=== PATIENT | male | born 1960 | race Caucasian/White ===

== ENCOUNTER 2016-08-15 12:56 | Outpatient (CLI) ==
--- NOTE | 2016-08-15 14:11 | DI ---
EXAM: Chest two view, frontal and lateral views. HISTORY: Cough. COMPARISON: 10/10/2009. FINDINGS: The heart size is normal. There is no pulmonary vascular congestion. The lungs are per r. No pleural effusion or pneumothorax is seen. No acute osseous abnormality identified. Since prior study, there has been no significant interval change. IMPRESSION: No acute cardiopulmonary process.
== END 2016-08-15 12:57 | disposition home or self-care (01) ==
LOC: RAD 12:56
PROVIDERS: ATTEND Internal Medicine
DX: R05 Cough (principal)

== ENCOUNTER 2017-01-26 09:14 | Outpatient (CLI) ==
--- NOTE | 2017-01-26 09:47 | CT ---
EXAM: CT chest without contrast HISTORY: Right-sided pulmonary nodule COMPARISON: Chest x-ray 08/15/2016, 09/1969 and 06/08/2009 TECHNIQUE: Serial axial images of the chest were obtained from the lung apices to the upper abdomen without contrast. These were viewed in multiple planes. FINDINGS: The thyroid is normal. The visualized vessels are unremarkable without aneurysm or steno sis. The heart is normal in size without pericardial effusion. There are no pathologically enlarge d mediastinal or hilar lymph nodes. There are calcified mediastinal and right hilar lymph nodes. There is no pneumothorax or pleural effusion. There is a large centrally calcified nodule in the ri ght lower lobe measuring 1.1 x 1.2 cm with a smaller calcified granuloma measuring 0.4 cm adjacent t o the fissure in the right lower lobe. There is no acute consolidation, soft tissue nodule or mass i dentified. The airways are patent. There is no abnormal ground-glass. Soft tissues in the upper abdomen demonstrate no acute abnormality. The osseous structures demonstr ate multilevel degenerative disease of the spine. IMPRESSION: 1. No suspicious pulmonary nodule. 2. Central calcified lymph nodes and right lower lobe calcified granulomas consistent with old gran ulomatous disease.
== END 2017-01-26 09:15 | disposition home or self-care (01) ==
LOC: RAD 09:14
PROVIDERS: ATTEND Internal Medicine
DX: R91.1 Solitary pulmonary nodule (principal)

== ENCOUNTER 2017-08-20 15:34 | Outpatient (CLI) ==
[2017-05-30 06:58] VITALS: BMI 28.1
== END 2017-08-20 15:35 | disposition home or self-care (01) ==
LOC: CAR 15:34
PROVIDERS: ATTEND Internal Medicine
DX: G47.30 Sleep apnea, unspecified (principal)
CPT/HCPCS: 95811

== ENCOUNTER 2018-01-12 09:14 | Day surgery (SDC) ==
[2017-05-30 06:58] VITALS: BMI 28.1
[2018-01-12] MEDS ORDERED: LIDOCAINE 1% 20 ML MDV ID STA (10:33)
[2018-01-12] MEDS ORDERED: DIPRIVAN 20 ML VIAL IVP ONE (11:16)
[2018-01-12] MEDS ORDERED: LIDOCAINE HCL 2% LUER-JET ONE (11:16)
[2018-01-12] MEDS ORDERED: VERSED ONE (11:16)
[2018-01-12 12:57] VITALS: BP 148/73; TEMP 97
--- NOTE | 2018-01-13 10:58 | OP ---
INDICATIONS FOR PROCEDURE: 57-year-old gentleman presents for endoscopy and colonoscopy. He last had a colonoscopy over 5 years ago showing hyperplastic polyps. His brother had colon polyps in his 50's. This classifies him for a screening colon exam with a family history of colon polyps. He also presents for endoscopy. He has a chronic cough. He does have a history of reflux disease. He is on b.i.d. PPI therapy. He states his cough has improved since starting on a higher dose of Asmanex. MEDICATIONS: SEE ANESTHESIA NOTES. PROCEDURE: 1. ENDOSCOPY, ESOPHAGEAL BIOPSY, GASTRIC BIOPSY, CONGOLESE DILATATION. 2. COLONOSCOPY, SNARE POLYPECTOMY. REPORT: The risks, benefits, alternatives and limitations were discussed in detail with the patient. Informed consent was obtained. After adequate sedation was achieved, the video endoscope was introduced in the posterior pharynx and esophagus under direct vision and I easily advanced down to the second portion of the duodenum. I then slowly withdrew the scope. The duodenal mucosa appeared unremarkable as did the duodenal bulb. The antrum and body were relatively unremarkable. In the proximal body and fundic area there was multiple sessile and semi sessile polyps. These were consistent with hyperplastic polyps or fundic polyps. I biospied several of them for histologic review. There was a small hiatal hernia. I withdrew the scope back into the hernia pouch. There was about a 2 cm hiatal hernia. In the pouch, in the cardia , there was a little thickening mucosa. I could not tell if this was granulation tissue or something else. It was about 1 cm distal to the GE junction. I biopsied it for histological review multiple times. The GEJ was also irregular in appearance. It was variable. I biopsied the GEJ several times for histological review. At the lower esophageal sphincter as well there was a stricture that encompassed about two-thirds of the lumen caused mild luminal narrowing. The remaining esophagus appeared unremarkable. I advanced the scope back down the gastric lumen, placed a guidewire. I withdrew the scope. Over the guidewire, I easily advanced the 54 Bengali [place] Dilator. The patient tolerated this procedure well with stable vital signs and pulse oximetry throughout. The patient's bed was turned. A digital rectal exam revealed good tone, no masses. The colonoscope was introduced into the rectum and was advanced under direct visual guidance and advanced easily to the cecum. The cecum was identified by the appendiceal orifice and IC valve. I then slowly withdrew the scope in a circumferential manner examining the mucosa quite carefully. I looked on the proximal and distal side of folds and flexures as best as possible. I was able to retroflex the scope in the right colon and left colon to increase visualization. In the distal transverse colon I removed a small 5 mm polyp that was sessile. It was retrieved. The remaining colon appeared unremarkable including on retroflex view of the anal canal. The prep was good. The withdrawal time was 6 minutes and 0 seconds excluding the time for polypectomy. The patient tolerated the procedure well with stable vital signs and pulse oximetry throughout. IMPRESSION: 1. 2 CM HIATAL HERNIA. 2. IRREGULAR VARIABLE GE JUNCTION BIOPSIED. 3. SLIGHTLY PROMINENT MUCOSA IN THE HIATAL HERNIA POUCH, QUESTION GRANULATION TISSUE, ET CETERA, BIOPSIED. 4. 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 5. MULTIPLE BENIGN APPEARING FUNDIC TYPE POLYPS. 6. SMALL COLONIC POLYP REMOVED. 7. BASED ON THE FINDINGS OF THIS EXAM I CANNOT DETERMINE IF THIS COUGH IS OR IS NOT RELATED TO GASTROESOPHAGEAL REFLUX DISEASE. RECOMMENDATIONS: 1. Strict esophageal reflux precautions and I have gone over these with him. I especially advise weight loss. 2. Await pathology results from the esophageal biopsy, cardia biopsy and gastric polyp biopsy results. If this is all unremarkable tissue without any precancerous or atypical findings, then followup as needed. 3. Await colon polyp pathology results. If that too is benign as expected, I recommend surveillance colonoscopy examination again in 5 years. 4. I will see him back in the office as needed. ADDENDUM: I did see a small AVM in the proximal ascending colon. CC: DR. ZAY KHAN
== END 2018-01-12 12:41 | disposition home or self-care (01) ==
LOC: SURG 09:14
PROVIDERS: ATTEND Internal Medicine Gastroenterology
DX: C16.0 Malignant neoplasm of cardia (principal); K63.5 Polyp of colon; K31.7 Polyp of stomach and duodenum; Z83.71 Family history of colonic polyps; Z87.19 Personal history of other diseases of the digestive system; R05 Cough; K21.9 Gastro-esophageal reflux disease without esophagitis; K44.9 Diaphragmatic hernia without obstruction or gangrene; K22.2 Esophageal obstruction

== ENCOUNTER 2018-01-21 08:48 | Outpatient (CLI) ==
[2017-05-30 06:58] VITALS: BMI 28.1
--- NOTE | 2018-01-21 12:21 | CT ---
EXAM: CT abdomen pelvis with contrast HISTORY: Adenocarcinoma, gastroesophageal junction COMPARISON: None TECHNIQUE: Pelvis performed with intravenous contrast. Coronal and sagittal reformatted images obta ined. FINDINGS: Please refer to report CT chest regarding findings in the lower chest. No free air. No a cute abnormalities of the bones. No suspicious lytic or blastic lesions identified. Liver appears n ormal. Gallbladder appears normal. Pancreas appears normal. Spleen with granulomatous calcificatio n, otherwise unremarkable. Adrenals unremarkable. Sub centimeter hypodensity left kidney, too small to characterize. No hydronephrosis. Aorta normal in caliber. Bladder unremarkable. Prostate mild ly enlarged. Small fat-containing right inguinal hernia. No lymphadenopathy or ascites. Mild thick ening gastroesophageal junction region. No dilated loops small bowel. Appendix appears normal. Por tions of the colon decompressed and poorly evaluated. Small fat-containing periumbilical hernia. IMPRESSION: 1. No evidence for metastatic disease in the abdomen or pelvis. 2. Mild thickening gastroesophageal junction region. Recommend correlation with endoscopy results. 3. Enlarged prostate.
--- NOTE | 2018-01-21 12:24 | CT ---
Exam: CT chest with intravenous contrast. Comparison: 01/26/2017. Reason for exam: Right lung nodules. FINDINGS: Similar appearing partially calcified 13 mm nodule in the right lower lobe not significant ly changed from previous exam with small adjacent micronodules. No pneumothorax, pleural effusion, o r focal consolidation. No suspicious appearing mediastinal lymph node enlargement. The heart is not enlarged. No suspicious appearing osteoblastic or osteolytic lesions. Impression: Similar appearing partially calcified and noncalcified nodules in the right hemithorax not significan tly changed when compared to imaging performed on 01/26/2017. If clinical concern exists, 1-year fol low-up may be performed to document stability
== END 2018-01-21 08:49 | disposition home or self-care (01) ==
LOC: RAD 08:48
PROVIDERS: ATTEND Internal Medicine
DX: R91.8 Other nonspecific abnormal finding of lung field (principal); C16.0 Malignant neoplasm of cardia

== ENCOUNTER 2018-07-31 15:19 | Emergency (ER) ==
[2018-07-31 15:28] VITALS: BP 139/81; TEMP 97.8; BMI 21.2
[2018-07-31] MEDS ORDERED: LACTATED RINGERS 1,000 ML IV STA ×2 (15:48→17:49)
[2018-07-31] MEDS ORDERED: PHENERGAN 25 MG/ML VIAL 25 MG in SODIUM CHLORIDE 50 ML IV STA (15:58)
[2018-07-31] MEDS ORDERED: ZOFRAN 4 MG/2 ML IVP STA (15:58)
[2018-07-31] MEDS ORDERED: PHENERGAN 25 MG/ML VIAL ONE (16:27)
--- NOTE | 2018-07-31 17:10 | ED.PDOC ---
General ED Provider: Dr. ELENA WILLS Chief Complaint: Nausea/Vomiting Stated Complaint: Patient comes to the ER with nausea and vomiting. Had chemotherapy yesterday Time Seen by Physician: 15:30 Mode of Arrival: Walk-In Information Source: Patient Exam Limitations: No limitations Primary Care Provider: SYED COLLAZO Nursing and Triage Documentation Reviewed and Agree: Yes Does patient meet sepsis criteria?: No System Inflammatory Response Syndrome: Not Applicable Sepsis Protocol: For patient's 13 years and over: Temp is 96.8 and below OR 101 and greater Pulse >90 BPM Resp >20/minute Acutely Altered Mental Status Are patient's symptoms suggestive of a new infection, such as: -Pneumonia -Skin, Soft Tissue -Endocarditis -UTI -Bone, Joint Infection -Implantable Device -Acute Abdominal Infection -Wound Infection -Meningitis -Blood Stream Catheter Infection -Unknown GI Complaint Exam - Vomiting/Diarrhea Complaint/Exam Character of Vomiting: Reports: Non-bilious Aggravating: Reports: Food Alleviating: Reports: None Associated Signs and Symptoms: Reports: Light-headedness, Cramping Related History: Reports: Similar episode (with chemo therapy ) Last Oral Intake: early today Non-GI Risk Factors: Reports: Vomiting due to neuro (due to chemotherapy ) Related Surgical History: Denies: Cholecystectomy, Appendectomy, Colectomy, Gastric Bypass (but esophagial cancer resection. ) Differential Diagnoses: Viral Gastroenteritis, Other (post chemotherapy Nausea. ) Review of Systems - Review Of Systems Constitutional: Reports: No symptoms Eyes: Reports: No symptoms Ears, Nose, Mouth, Throat: Reports: No symptoms Respiratory: Reports: No symptoms Cardiac: Reports: No symptoms GI: Reports: Nausea, Poor appetite, Vomiting : Reports: No symptoms Musculoskeletal: Reports: No symptoms Skin: Reports: No symptoms Neurological: Reports: No symptoms Endocrine: Reports: No symptoms Hematologic/Lymphatic: Reports: No symptoms All Other Systems: Reviewed and Negative Past Medical History - Past Medical History Previously Healthy: Yes Endocrine: Reports: None Cardiovascular: Reports: None Respiratory: Reports: None Hematological: Reports: None Gastrointestinal: Reports: GERD Genitourinary: Reports: None Neuro/Psych: Reports: None Musculoskeletal: Reports: Arthritis 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 ) - Surgical History General Surgical History: Reports: Other (Esophagial resection ) - Family History Family History: Reports: None - Social History Smoking Status: Former smoker Hx Substance Use: No Alcohol Screening: None - Immunizations Tetanus Shot up to Date: No Physical Exam - Physical Exam Appearance: Ill-appearing Ill-appearing: Moderate Pain Distress: Mild Eyes: REJI, EOMI, Conjunctiva clear Neck: Supple Respiratory: Airway patent, Breath sounds clear, Breath sounds equal, Respirations nonlabored Cardiovascular: RRR, Pulses normal, No rub, No murmur GI/: Soft, Nontender, No masses, Bowel sounds normal, No Organomegaly Musculoskeletal: Normal strength, ROM intact, No edema, No calf tenderness Skin: Warm, Dry Neurological: Sensation intact, Motor intact, Alert, Oriented Psychiatric: Anxious Re-Evaluation - Re-Evaluation Time of Re-Evaluation: 19:24 Status: Improved Appearance: Other (resting comfortably) Critical Care Note - Critical Care Note Total Time (mins): 0 Course - Course Hematology/Chemistry: 07/31/18 17:18 07/31/18 17:18 Orders, Labs, Meds: Lab Review 07/31/18 07/31/18 17:18 17:18 WBC 6.25 RBC 4.41 L Hgb 12.3 L Hct 37.4 L MCV 84.8 MCH 27.9 MCHC 32.9 RDW Coeff of Bobby 15.6 H Plt Count 177 Immature Gran % (Auto) 0.3 Neut % (Auto) 73.1 Lymph % (Auto) 18.6 [place] % (Auto) 7.2 Eos % (Auto) 0.5 Baso % (Auto) 0.3 Immature Gran # (Auto) 0.0 Neut # (Auto) 4.6 Lymph # (Auto) 1.2 [place] # (Auto) 0.5 Eos # (Auto) 0.0 Baso # (Auto) 0.0 Sodium 135.3 Potassium 4.39 Chloride 102.8 Carbon Dioxide 28.9 Anion Gap 7.99 BUN 10.8 Creatinine 0.85 Estimated GFR (MDRD) 92.00 BUN/Creatinine Ratio 12.70 Glucose 116.4 H Calcium 8.86 Total Bilirubin 1.27 AST 29.8 ALT 13.6 Alkaline Phosphatase 64.6 Total Protein 6.54 Albumin 3.59 Globulin 2.95 Albumin/Globulin Ratio 1.21 Orders Category Date Time Status ED IV/MEDIPORT/POWERPORT .ONCE EMERGENCY 07/31/18 15:48 Active CBC W/ AUTO DIFF Stat LAB 07/31/18 17:18 Completed COMPREHENSIVE METABOLIC PANEL Stat LAB 07/31/18 17:18 Completed 0.9 % Sodium Chloride [Saline Flush] MEDS 07/31/18 15:48 Ordered 1 syr IVF PRN PRN Haloperidol Lactate [Haldol] MEDS 07/31/18 17:47 Discontinued 1 mg IVP ONCE STA Ondansetron HCl/Pf [Zofran 4 mg/2 ml] MEDS 07/31/18 15:58 Discontinued 8 mg IVP ONCE STA Pantoprazole Sodium [Protonix IV] MEDS 07/31/18 18:17 Discontinued 40 mg IVP ONCE STA Promethazine HCl [Phenergan 25 mg/ml Vial] MEDS 07/31/18 16:27 Discontinued 25 mg .ROUTE .STK-MED ONE Promethazine HCl [Phenergan 25 mg/ml Vial] 25 mg MEDS 07/31/18 15:58 Discontinued 0.9 % Sodium Chloride [Sodium Chloride] 50 ml IV ONCE Ringers Lactated Solution [Lactated Ringers] 1,000 ml MEDS 07/31/18 15:48 Discontinued IV BOLUS Ringers Lactated Solution [Lactated Ringers] 1,000 ml MEDS 07/31/18 17:49 Discontinued IV BOLUS Medications Generic Name Dose Route Start Last Admin Trade Name Freq PRN Reason Stop Dose Admin Sodium Chloride 1 syr 07/31/18 15:48 Saline Flush IVF PRN PRN To flush IV Discontinued Medications Generic Name Dose Route Start Last Admin Trade Name Freq PRN Reason Stop Dose Admin Haloperidol Lactate 1 mg 07/31/18 17:47 07/31/18 17:58 Haldol IVP 07/31/18 17:48 5 mg ONCE STA Administration Lactated Ringer's 1,000 mls @ 1,000 mls/hr 07/31/18 15:48 07/31/18 16:38 Lactated Ringers IV 07/31/18 16:47 1,000 mls/hr BOLUS STA Administration Promethazine HCl 25 mg/ Sodium 51 mls @ 75 mls/hr 07/31/18 15:58 07/31/18 16: 37 Chloride IV 07/31/18 16:38 75 mls/hr ONCE STA Administration Lactated Ringer's 1,000 mls @ 1,000 mls/hr 07/31/18 17:49 07/31/18 17:57 Lactated Ringers IV 07/31/18 18:48 1,000 mls/hr BOLUS STA Administration Ondansetron HCl 8 mg 07/31/18 15:58 07/31/18 16:38 Zofran 4 Mg/2 Ml IVP 07/31/18 15:59 8 mg ONCE STA Administration Pantoprazole Sodium 40 mg 07/31/18 18:17 07/31/18 18:52 Protonix Iv IVP 07/31/18 18:18 40 mg ONCE STA Administration Vital Signs: Temp Pulse Resp BP Pulse Ox 07/31/18 15:21 97.8 F 80 16 139/81 100 Departure - Departure Time of Disposition: 19:24 Disposition: HOME SELF-CARE Discharge Problem: Nausea, Vomiting Instructions: Acute Nausea and Vomiting (ED) Condition: Fair Pt referred to PMD for follow-up: Yes IPMP verified?: No Additional Instructions: Push fluids Take Medications as prescribed for nausea Follow up with PCPin 3 days Prescriptions: Prochlorperazine Maleate [Compazine] 10 mg PO QID PRN #30 tablet PRN Reason: Nausea / Vomiting Promethazine HCl [Phenergan Tab] 25 mg PO Q6H PRN #15 tablet PRN Reason: Nausea / Vomiting Allergies/Adverse Reactions: Allergies No Known Allergies Allergy (Unverified 05/30/17 06:57) Home Medications: Ambulatory Orders Pantoprazole Sodium 40 mg PO DAILY 05/30/17 Ondansetron [Zofran Odt] 4 mg SL PRN PRN 07/31/18 Prochlorperazine Maleate [Compazine] 10 mg PO QID PRN #30 tablet 07/31/18 Promethazine HCl [Phenergan Tab] 25 mg PO Q6H PRN #15 tablet 07/31/18
[2018-07-31] MEDS ORDERED: HALDOL IVP STA (17:47)
[2018-07-31] MEDS ORDERED: PROTONIX IV IVP STA (18:17)
[2018-07-31] MEDS ORDERED: ED AFTER HOURS SUPPLY MED SENT HOME PO ONE (19:53)
[2018-07-31] MEDS ORDERED: COMPAZINE ONE (19:58)
== END 2018-07-31 20:00 | disposition home or self-care (01) ==
LOC: ED 15:19
DX: R11.2 Nausea with vomiting, unspecified (principal); T45.1X5A Adverse effect of antineoplastic and immunosuppressive drugs, initial encounter; C15.9 Malignant neoplasm of esophagus, unspecified
CPT/HCPCS: 36415; 80053; 85025; 96361; 96365; 96372; 99284

== ENCOUNTER 2018-08-27 07:50 | Outpatient (CLI) ==
--- NOTE | 2018-08-27 12:04 | DI ---
EXAM: Upper GI with small bowel follow-through HISTORY: There is esophageal cancer COMPARISON: None TECHNIQUE: Upper GI and small-bowel follow-through was performed. FINDINGS: Examination is single contrast and mucosal pattern is not evaluated. Postsurgical changes of gastric pull-through are grossly unremarkable. Duodenum grossly unremarkable. Overhead images obtained at 0, 30, 60 minutes. Small bowel mucosal pattern grossly unremarkable. No dilated loops s mall bowel. Relatively rapid small transit time with contrast reaching the colon at 30 minutes. IMPRESSION: 1. Postsurgical changes of gastric pull-through. 2. Relatively rapid small bowel transit time of 30 minutes, nonspecific.
== END 2018-08-27 07:51 | disposition home or self-care (01) ==
LOC: RAD 07:50
PROVIDERS: ATTEND Internal Medicine
DX: R11.2 Nausea with vomiting, unspecified (principal); R10.9 Unspecified abdominal pain; Z98.890 Other specified postprocedural states; C15.9 Malignant neoplasm of esophagus, unspecified